=== PATIENT | female | born 1960 | race Caucasian/White ===

== ENCOUNTER 2024-06-06 15:14 | Emergency (ER) | payer BC, SELFPAY ==
[2024-06-06] VITALS (10 sets, daily range): BP systolic 104–186; BP diastolic 64–107; PULSE 72–90; RESP 16; O2SAT 94–98; BMI 31.9
[2024-06-06] MEDS: OXYMETAZOLINE NASAL SPRAY 30 ML 2 SPRAYS NASAL (16:21)
--- NOTE | 2024-06-06 16:21 | ED_ITS ---
HPI - Epistaxis General Chief complaint: Nasal Problem Stated complaint: nose bleed for 50 min Time Seen by Provider: 06/06/24 15:20 History of Present Illness HPI Narrative: Patient is 64-year-old female presenting today with epistaxis. Reports that she had a minor nosebleed last night she thinks it started from the right side and then started bleeding again today at around 2 p.m.. 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 She has not on antiplatelet or anticoagulation medication Related Data Home Medications Medication Instructions Recorded Confirmed amitriptyline 10 mg tablet 10 mg PO BEDTIME 09/27/18 06/10/20 propranolol 60 mg capsule,24 60 mg PO DAILY 09/27/18 06/10/20 hr,extended release Allergies Allergy/AdvReac Type Severity Reaction Status Date / Time codeine Allergy Mild Verified 06/10/20 14:51 adhesive tape AdvReac Mild Rash Verified 06/10/20 14:51 Patient History Social History Smoking Status: Never smoker Smoking Status: Never smoker Exam Initial Vital Signs Initial Vital Signs: Vital Signs Pulse Rate 74 06/06/24 15:19 Respiratory Rate 16 06/06/24 15:19 Blood Pressure 172/96 H 06/06/24 15:19 Pulse Oximetry 97 06/06/24 15:19 Oxygen Delivery Method Room Air 06/06/24 15:19 GENERAL: Well-appearing, well-nourished and in no acute distress. NOSE: Bilateral epistaxis with drainage into pharynx CARDIOVASCULAR: peripheral pulses in tact, cap refill <2 sec RESPIRATORY: No respiratory distress, speaks in full sentences without difficulty EXTREMITIES: Normal range of motion, no clubbing or edema. Neurovascularly intact NEUROLOGICAL: Cranial nerves II through XII grossly intact. Normal gait and speech. SKIN: Warm, dry, no petechiae, no rashes or lesions. Course Orders Ordered: Discontinued Medications Ondansetron HCl (Ondansetron 4 Mg/2 Ml Inj) 4 mg IV NOW ONE Stop: 06/06/24 16:48 Last Admin: 06/06/24 16:52 Dose: 4 mg Documented By: AURORA Oxymetazoline HCl (Oxymetazoline Nasal [place] 30 Ml) 2 sprays NASAL NOW ONE Stop: 06/06/24 16:21 Last Admin: 06/06/24 16:21 Dose: 2 sprays Documented By: AURORA Vital Signs Vital signs: Vital Signs - 8 hr 06/06/24 15:19 06/06/24 15:25 06/06/24 15:25 Pulse Rate 74 72 Respiratory Rate 16 Blood Pressure 172/96 H 186/107 H Pulse Oximetry 97 97 Oxygen Delivery Method Room Air 06/06/24 15:30 06/06/24 15:30 06/06/24 16:00 Pulse Rate 78 76 Respiratory Rate Blood Pressure 177/90 H 156/83 H Pulse Oximetry 97 97 Oxygen Delivery Method 06/06/24 16:48 06/06/24 16:56 06/06/24 17:00 Pulse Rate 90 78 81 Respiratory Rate 16 Blood Pressure 104/64 107/64 122/66 Pulse Oximetry 97 94 95 Oxygen Delivery Method Room Air 06/06/24 17:15 06/06/24 17:15 06/06/24 17:30 Pulse Rate 72 Respiratory Rate Blood Pressure 133/77 142/88 H Pulse Oximetry 96 Oxygen Delivery Method 06/06/24 17:30 06/06/24 17:45 06/06/24 17:45 Pulse Rate 81 82 Respiratory Rate Blood Pressure 144/78 H Pulse Oximetry 95 98 Oxygen Delivery Method MDM - Epistaxis MDM Narrative Medical decision making narrative: 64-year-old female presenting today with epistaxis. Did progress quite quickly while in the ED. I did place bilateral no over she is still spitting up blood 1630 Dr. Torres called said that he will come in to help Dr. Torres at bedside cauterized bleeding area packed it and got bleeding under control. Patient will follow-up with Dr. Torres tomorrow. Overall she is feeling much better Discharge Plan Departure Patient Disposition: Home Clinical Impression: Epistaxis Instructions: DI for Nosebleed Activity Restrictions/Additional Instructions: *You have been diagnosed with nosebleed *What to do: Please follow-up with Dr. Torres as scheduled tomorrow. Follow his instructions *Continue to take medications as directed *Follow up with your primary care provider in 2-3 days or call [phone] *Return to ER if you should have persistent worsening bleeding or any new, worsening or concerning symptoms Prescriptions: No Action propranolol 60 mg capsule,extended release 24 hr 60 mg PO DAILY amitriptyline 10 mg tablet 10 mg PO BEDTIME Referrals: Vipin Torres MD [Physician] - Mirtha Jiang MD [Primary Care Provider] - Stand Alone Forms: Patient Portal/API, Work Release Note
--- NOTE | 2024-06-06 16:50 | PC.NURSE ---
Patient complaining of headache and nausea, which she said she was having prior to coming to the ER with epistaxis but that she says is worse now. Dr. Walsh is informed and aware. Verbal order given for 4mg Zofran IV and ice pack given to patient to apply to head.
[2024-06-06] MEDS: ONDANSETRON 4 MG/2 ML INJ IV (16:52)
--- NOTE | 2024-06-06 16:56 | PC.NURSE ---
Dr Torres, ENT at bedside
--- NOTE | 2024-06-06 18:48 | P.OP_ITS ---
Operative Date/Time/Diagnoses Time of procedure: 17:30 Pre-op diagnosis: Epistaxis Post-op diagnosis: same Procedure & Clinicians Procedure: RIGHT endoscopic control of epistaxis Same procedure as scheduled: Yes Indications: 64 Year old with the above diagnoses incompletely managed with medical therapy presents for the above procedure. Following discussion of the material risks benefits complications and alternatives, the patient elected to proceed. Surgeon: Vipin Torres Click Yes if Unassisted: Yes Anesthesia Type: Local Operative Notes Findings: 3 mm raised circular flat lesion, vascular, of the right mid septum 3 cm from the vestibule. Endoscopy entirely negative for other bleeding source with normal inferior and middle meatus. Estimated Blood Loss (mL): 3 Procedure in detail: Following verbal consent, I deflated 1st the left and then the right balloon packs and remove them. She expelled some clot from her nose and mouth. I vianca celena cotton with 4% lidocaine and Afrin on the right side for several minutes. Upon removal of the 2.7 mm 30 degree rigid nasal endoscope was passed bilaterally with the above findings noted. The lesion was cauterized superficially in 2 layers with silver nitrate with pressure for hemostasis and further anesthesia. A trimmed Merocel sponge proximally 1.5 cm was placed over the area and saturated with Afrin to inflated. Tolerated well without known complication. Complications: none Post-operative Condition: stable Plan for aftercare: Afrin for any bleeding, call the office tomorrow morning for visit tomorrow or the next day for packing removal and definitive treatment.
--- NOTE | 2024-06-06 18:54 | PM.CN ---
History of Present Illness Consult details Date Patient Seen: 06/06/24 Time Patient Seen: 17:00 Chief complaint: nose bleed for 50 min Reason for consult: Persistent epistaxis despite bilateral balloon packs Requesting provider: Valencia Walsh Narrative: 64-year-old non anticoagulated female began bleeding spontaneously from her nose at work approximately 1400, presumably primarily the right side. She was transported to the emergency room were initially a right balloon pack was placed after failure of pressure and Afrin. Bleeding then proceeded out the left nostril which was also packed. She complained of persistent bleeding down her throat and therefore I was contacted. Nausea has improved with medication and she is not actively bleeding when I arrived. Following discussion of the material risks benefits complications and alternatives, she elected to proceed with right endoscopic control of epistaxis, see separate procedure note. Left ear feels plugged, also has complained of some ?glandular ?pain in her neck for the last month without known etiology. No other ENT complaints. Denies baseline nasal obstruction. Meds Home Medications and Allergies Home Medications Medication Instructions Recorded Confirmed Type amitriptyline 10 mg tablet 10 mg PO BEDTIME 09/27/18 06/10/20 History propranolol 60 mg capsule,24 60 mg PO DAILY 09/27/18 06/10/20 History hr,extended release Allergies Allergy/AdvReac Type Severity Reaction Status Date / Time codeine Allergy Mild Verified 06/10/20 14:51 adhesive tape AdvReac Mild Rash Verified 06/10/20 14:51 Review of Systems Review of Systems Narrative: Negative except as listed in the HPI Exam Vital Signs (past 8 hours): - 06/06/24 15:19 06/06/24 15:25 06/06/24 15:25 Pulse Rate 74 72 Respiratory Rate 16 Blood Pressure 172/96 H 186/107 H Pulse Oximetry 97 97 Oxygen Delivery Method Room Air 06/06/24 15:30 06/06/24 15:30 06/06/24 16:00 Pulse Rate 78 76 Respiratory Rate Blood Pressure 177/90 H 156/83 H Pulse Oximetry 97 97 Oxygen Delivery Method 06/06/24 16:48 06/06/24 16:56 06/06/24 17:00 Pulse Rate 90 78 81 Respiratory Rate 16 Blood Pressure 104/64 107/64 122/66 Pulse Oximetry 97 94 95 Oxygen Delivery Method Room Air 06/06/24 17:15 06/06/24 17:15 06/06/24 17:30 Pulse Rate 72 Respiratory Rate Blood Pressure 133/77 142/88 H Pulse Oximetry 96 Oxygen Delivery Method 06/06/24 17:30 06/06/24 17:45 06/06/24 17:45 Pulse Rate 81 82 Respiratory Rate Blood Pressure 144/78 H Pulse Oximetry 95 98 Oxygen Delivery Method Oxygen Delivery Method Room Air Narrative Exam Narrative: Well-developed well-nourished female initially anxious and uncomfortable with bilateral packs in place, markedly improved by completion. Right partial hemotympanum, left partial medial impaction but clear middle ear. Bilateral bloody balloon packs in place anteriorly. Oral cavity clear oropharynx clear without bleeding posteriorly. Neck is soft and nontender no masses PFSH Tobacco & Substance Use Smoking Status: Never smoker Assessment & Plan Assessment & Plan narrative: Assessment: Right epistaxis, highly likely the source identified as the septal lesion, vascular, partially ablated Plan: Following discussion of the material risks benefits complications and alternatives, she elected to proceed with endoscopic control of epistaxis. She will soak the pack with Afrin with any further bleeding, contact our office tomorrow morning for more definitive treatment, possible electrocautery in the next 1-2 days. No heavy lifting or straining, no nose blowing. Time-Based Coding :: [TOTAL MINUTES] spent with patient and on the chart (including review of chart, obtaining history, exam, reviewing outside data, placing orders, documenting exam and treatment plan, and counseling patient) on [DATE].
== END 2024-06-06 18:03 | disposition home or self-care (01) ==
PROVIDERS: Emergency Provider Emergency Medicine; PCP Family Medicine
DX: R04.0 Epistaxis (principal)
CPT/HCPCS: 30905; 36415; 96374; 99284; J2405

== ENCOUNTER → 2024-10-14 09:15 | Outpatient (CLI) | payer BC, SELFPAY ==
--- NOTE | 2024-10-14 09:18 | DI.MRI.S_ITS ---
PROCEDURE: MR KNEE LT WO CON INDICATIONS: ACUTE PAIN OF LEFT KNEE TECHNIQUE: Noncontrast sagittal PD fast spin echo and T2 fast spin echo with fat saturation, sagittal 3-D FLASH with fat saturation; coronal T1 spin echo and PD fast spin echo with fat saturation, and axial PD fast spin echo with fat saturation through the knee. COMPARISON: None. FINDINGS: Image quality: Excellent. Menisci: There is a horizontal tear involving the posterior lateral aspect of the lateral meniscus best seen on image 361 coronal PD. The medial meniscus is intact. Cruciate ligaments: The anterior and posterior cruciate ligaments appear intact. Medial structures: Medial collateral ligament is intact. Lateral structures: The lateral collateral ligaments intact. Anterior structures: The quadriceps and patellar tendons appear intact. There is loss of patellar cartilage involving the lateral facet with subchondral marrow edema and irregularity of the cortical surface. No edema in the infrapatellar fat pad. Bones and cartilage: No bone marrow contusions or fractures. The cartilage of the medial and lateral femorotibial compartments, as well as the patellofemoral compartment, appears normal in thickness. Joint space: Suprapatellar bursa effusion is present. There is soft tissue swelling anteriorly. IMPRESSION: Grade 4 chondromalacia patella. Findings suspicious for horizontal tear involving the posterior lateral horn of the lateral meniscus. Dictated by: Jorge Murillo M.D. on 10/14/2024 at 10:49 Approved by: Jorge Murillo M.D. on 10/14/2024 at 11:06
== END ==
LOC: MRI 09:17
PROVIDERS: PCP Family Medicine; Referring Provider Physician Assistant; Visit Provider Physician Assistant
DX: M22.42 Chondromalacia patellae, left knee (principal); M25.562 Pain in left knee; M25.462 Effusion, left knee; M79.89 Other specified soft tissue disorders
CPT/HCPCS: 73721

== ENCOUNTER → 2024-11-12 14:10 | Outpatient (CLI) | payer BC, SELFPAY ==
--- NOTE | 2024-11-12 14:34 | DI.CT.S_ITS ---
PROCEDURE: CT SOFT TISSUE NECK W CON INDICATIONS: MASS OF NECK TECHNIQUE: After the administration of intravenous contrast, 3.0 mm axial sections acquired from the sella to the aortic arch. Additional oblique axial 3.0 mm sections acquired through the pharynx. 3 mm thick coronal and sagittal reformats were generated. For radiation dose reduction, the following was used: automated exposure control. COMPARISON: None. FINDINGS: Image quality: Excellent. Lymph nodes: No enlarged lymph nodes seen throughout the neck. Vessels: Visualized vasculature appears patent. Neck spaces: The oropharynx, nasopharynx, and pharynx demonstrate no mucosal lesions. The vocal cords, false vocal cords, pyriform sinuses, epiglottis, vallecula, and tongue base all appear normal. Extramucosal spaces appear unremarkable. Glands: The parotid and submandibular glands appear normal. Thyroid gland unremarkable. Miscellaneous: Visualized brain and orbits appear normal. Lung apices demonstrate patchy areas opacity within the upper lobes bilaterally. Superficial soft tissues appear normal. Bones: No suspicious bony lesions. Visualized sinuses and mastoids appear unremarkable. IMPRESSION: No left-sided neck mass. However, significant artifact is present from dental hardware. Dictated by: Casandra Maria M.D. on 11/12/2024 at 18:36 Approved by: Casandra Maria M.D. on 11/12/2024 at 18:39
== END ==
PROVIDERS: PCP Family Medicine; Referring Provider Physician Assistant Medical; Visit Provider Physician Assistant Medical
DX: R22.1 Localized swelling, mass and lump, neck (principal)
CPT/HCPCS: 70491; Q9967

== ENCOUNTER → 2025-02-23 09:27 | Outpatient (CLI) | payer BC, SELFPAY ==
--- NOTE | 2025-02-23 09:36 | DI.RAD.S_ITS ---
PROCEDURE: XR CERVICAL SPINE 2V OR 3V INDICATIONS: NECK/EAR PAIN TECHNIQUE: Three views of the cervical spine were acquired. COMPARISON: None. FINDINGS: Cervical spine curvature and alignment: Normal. Bones: There are no osseous abnormalities. Disc spaces: Moderate C5-6 C6-7 degenerative disc disease Soft tissues: No soft tissue swelling, calcification or mass. IMPRESSION: Degeneration Dictated by: Gee Wilburn M.D. on 02/24/2025 at 13:07 Approved by: Gee Wilburn M.D. on 02/24/2025 at 13:07
[2025-02-23 11:12] LABS: Erythrocyte Sedimentation Rate 5 MM/HR (0-20)
== END ==
LOC: RAD 09:33
PROVIDERS: PCP Physician Assistant Medical; Referring Provider Otolaryngology Facial Plastic Surgery; Visit Provider Otolaryngology Facial Plastic Surgery
DX: M50.322 Other cervical disc degeneration at C5-C6 level (principal); H92.02 Otalgia, left ear; M26.622 Arthralgia of left temporomandibular joint
CPT/HCPCS: 36415; 72040; 85651

== ENCOUNTER → 2025-03-20 09:20 | Outpatient (CLI) | payer OTHER, SELFPAY | PROVIDERS: PCP Physician Assistant Medical; Referring Provider Internal Medicine Pulmonary Disease; Visit Provider Internal Medicine Pulmonary Disease | DX: D86.0 Sarcoidosis of lung (principal); R94.2 Abnormal results of pulmonary function studies | CPT/HCPCS: 94060; 94726; 94729 ==